=== PATIENT | male | born 1945 | race Hispanic/Latino ===

== ENCOUNTER 2017-06-23 15:50 | Emergency (ER) | payer OTHER ==
[2017-06-23 16:01] VITALS: PULSE 84; RESP 16; TEMP 97.9; O2SAT 98
--- NOTE | 2017-06-23 16:52 | C.PDOC ---
History Of Present Illness 71 y/o male presents to ED with complaints of urinary retention that began 7 hours ago. Patient states he had cystoscopy with Dr.Elliot Garcia. Patient has had urinary symptoms in the past. Denies any other complaints. Time Seen by Provider: 06/23/17 16:12 Chief Complaint (Nursing): Male Genitourinary History Per: Patient History/Exam Limitations: no limitations Onset/Duration Of Symptoms: Hrs (7) Current Symptoms Are (Timing): Still Present Quality Of Discomfort: Unable To Describe Associated Symptoms: Urinary Symptoms. denies: Fever, Chills Alleviating Factors: None Recent travel outside of the [place]: No Past Medical History Reviewed: Historical Data, Nursing Documentation, Vital Signs Vital Signs: Last Vital Signs Temp 97.9 F 06/23/17 15:56 Pulse 84 06/23/17 15:56 Resp 16 06/23/17 15:56 BP 168/104 H 06/23/17 15:56 Pulse Ox 98 06/23/17 17:14 - Medical History PMH: Atrial Fibrillation, CAD, CHF, HTN Surgical History: No Surg Hx Family History: States: No Known Family Hx - Social History Hx Alcohol Use: No Hx Substance Use: No - Immunization History Hx Tetanus Toxoid Vaccination: No Hx Influenza Vaccination: No Hx Pneumococcal Vaccination: No Review Of Systems Constitutional: Negative for: Fever, Chills Gastrointestinal: Negative for: Nausea, Vomiting, Abdominal Pain, Diarrhea, Constipation Genitourinary: Positive for: Other (Urinary retention ). Negative for: Frequency, Hematuria Neurological: Negative for: Weakness, Numbness Physical Exam - Physical Exam Appears: Well, Non-toxic, No Acute Distress Skin: Normal Color, Warm, Dry Head: Atraumatic, Normacephalic Eye(s): bilateral: Normal Inspection Oral Mucosa: Moist Chest: Symmetrical, No Tenderness Cardiovascular: Rhythm Regular Respiratory: No Rales, No Rhonchi, No Wheezing Gastrointestinal/Abdominal: Soft, No Tenderness, Other (suprapubic fullness consistent; tensed bladder) Neurological/Psych: Oriented x3, Normal Speech, Normal Cognition ED Course And Treatment O2 Sat by Pulse Oximetry: 98 (RA) Pulse Ox Interpretation: Normal Medical Decision Making Medical Decision Making: Ordered urinalysis. urinary retention after cystoscopy yesterday by Dr. Bradley Garcia, which was sig for mild bleeding @ prostate, no bladdeer masses, no bx's taken. acharya placed and good urine flow Defer outpatient elective CT Abd/Pelvis for now. outpatient f/u. Bed side bladder US shows 788cc. Texter Dr. Garcia at 16:15. acharya for 800cc's blood tinged urine pt feels much better leg bag attached and educated cause; prob related to instrumentation yesterday for cystoscopy. 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 pt already on PO ABX and Flomax opt f/u Disposition Doctor Will See Patient In The: Office Counseled Patient/Family Regarding: Studies Performed, Diagnosis - Disposition Disposition: HOME/ ROUTINE Disposition Time: 17:21 Condition: GOOD Forms: [facility] ([place]ayan) - Clinical Impression Clinical Impression: Urinary retention - Scribe Statement The provider has reviewed the documentation as recorded by the Scribe Jer Benedict All medical record entries made by the Scribe were at my direction and personally dictated by me. I have reviewed the chart and agree that the record accurately reflects my personal performance of the history, physical exam, medical decision making, and the department course for this patient. I have also personally directed, reviewed, and agree with the discharge instructions and disposition.
[2017-06-23 17:43] VITALS: BP 141/85
[2017-06-23 18:17] LABS: URINE BILIRUBIN NEGATIVE (NEGATIVE); URINE CLARITY Turbid (Clear); URINE COLOR RED (YELLOW); URINE GLUCOSE (UA) 100 mg/dL (Normal)
[2017-06-23 18:18] LABS: URINE BLOOD LARGE (NEGATIVE); URINE LEUKOCYTE ESTERASE SMALL Leu/uL (Negative); URINE NITRATE POSITIVE (NEGATIVE); URINE PROTEIN >=300 mg/dL (NEGATIVE)
[2017-06-23 18:19] LABS: URINE BACTERIA MOD (<OCC)
== END 2017-06-23 17:42 | disposition home or self-care (01) ==
LOC: C.ER 15:50
DX: R33.9 Retention of urine, unspecified (principal)